=== PATIENT | female | born 1980 | race Caucasian/White ===

== ENCOUNTER 2024-06-14 09:02 | Observation (INO) | payer BC ==
[2024-06-14] MEDS ORDERED: Ondansetron ODT 4 MG TAB PO PRN (10:07)
[2024-06-14] MEDS ORDERED: traMADol HCl 50 MG TAB PO PRN (10:07)
[2024-06-14 10:27] VITALS: BMI 31.7
[2024-06-14 11:19] LABS: Troponin I Less than 0.010 ng/mL (< 0.028)
[2024-06-14] MEDS: Acetaminophen 325 MG TAB PO PRN (11:44)
[2024-06-14] MEDS: Apixaban 5 MG TAB PO SCH (20:03)
[2024-06-14] MEDS: Famotidine 20 MG TAB PO SCH (20:04)
[2024-06-15 05:09] LABS: Anion Gap 12 mmol/L (10-20); BUN (Urea Nitrogen) 7 mg/dL (7.0-18.7); Calc. Creatinine Clearance 135 mL/min (70-130); Calcium 8.7 mg/dL (7.8-10.44); Carbon Dioxide 24 mmol/L (22-29); Chloride 108 mmol/L (98-107); Estimated GFR 90; Glucose 95 mg/dL (70-105); Potassium 3.3 mmol/L (3.5-5.1); Sodium 141 mmol/L (136-145)
[2024-06-15] MEDS: Apixaban 5 MG TAB PO SCH (08:22)
[2024-06-15] MEDS: Thyroid 60 MG TAB PO SCH (08:22)
[2024-06-15 10:14] VITALS: BP 112/76; TEMP 97.4
[2024-06-15] MEDS: Potassium Chloride 20 MEQ TAB PO SCH (11:38)
== END 2024-06-15 14:45 | disposition home or self-care (01) ==
LOC: PCU 09:17
PROVIDERS: ADMIT Hospitalist; ATTEND Internal Medicine
PROC: B24BZZZ Ultrasonography of Heart with Aorta (ICD-10-PCS; principal; 2024-06-15)
DX: R07.9 Chest pain, unspecified (principal); R06.02 Shortness of breath; I26.99 Other pulmonary embolism without acute cor pulmonale; E03.9 Hypothyroidism, unspecified; Z79.01 Long term (current) use of anticoagulants; Z79.899 Other long term (current) drug therapy
CPT/HCPCS: 36415; 80048; 93306; G0378